=== PATIENT | female | born 1955 | race American Indian/Alaskan Native ===

== ENCOUNTER 2016-09-22 11:38 | Outpatient (CLI) | payer OTHER ==
--- NOTE | 2016-09-22 14:13 | Mammography Report ---
BILATERAL DIGITAL SCREENING MAMMOGRAM with CAD: 09/22/16 11:38:00 CLINICAL: Routine screening. COMPARISON:04/26/15 FINDINGS: The breasts are heterogeneously dense, which may obscure small masses. Bilateral benign calcifications. No mass, architectural distortion or suspicious calcifications. IMPRESSION: No mammographic evidence of malignancy. BI-RADS CATEGORY: 2 -- Benign RECOMMENDATION: Routine mammographic screening in one year. COMMENT: Patient follow-up letters are generated by our [email or web address] application.
== END 2016-09-22 11:39 | disposition home or self-care (01) ==
LOC: MAMMO 11:38
PROVIDERS: ATTEND Internal Medicine
DX: Z12.31 Encounter for screening mammogram for malignant neoplasm of breast (principal)
CPT/HCPCS: 77067; G0202

== ENCOUNTER 2021-05-11 04:00 | Emergency (ER) | payer MEDICARE ==
--- NOTE | 2021-05-11 04:43 | Emergency Department Report ---
Chief Complaint: High BP Stated Complaint: HBP Time Seen by Provider: 05/11/21 04:38 - HPI History of Present Illness: 66-year-old female patient with history of hypertension presents to emergency department with complaints of elevated blood pressure. She has checked her blood pressure 4 times in the last 24 hours. Systolic blood pressure has ranged from 160-170 mmHg. Her primary care provider checked her blood pressure in the office twice this week. Her blood pressure reportedly trended downward without intervention. Patient has been compliant with her medications. Patient is asymptomatic and denies all other complaints. - ROS Review of Systems: GENERAL: Negative for fever, chills, weight change, anorexia, fatigue. ENT: Negative for ear pain, difficulty hearing, sore throat, nasal congestion, epistaxis. CARDIOVASCULAR: Negative for chest pain, palpitations, lower extremity swelling. PULMONARY: Negative for cough, dyspnea, wheezing, orthopnea, cyanosis. GASTROINTESTINAL: Negative for abdominal pain, nausea, vomiting, diarrhea, constipation. MUSCULOSKELETAL: Negative for joint pain, joint swelling, myalgias, back pain, neck pain. NEUROLOGICAL: Negative for headache, seizure, syncope, paresthesias, weakness. INTEGUMENTARY: Negative for erythema, rash, diaphoresis, laceration, ecchymosis. HEMATOLOGICAL: Negative for hemoptysis, hematemesis, hematochezia, hematuria. PSYCHIATRIC: Negative for hallucinations, suicidal ideation, homicidal ideation, anxiety, depression. - Exam Vital Signs: Vital Signs 05/11/21 04:25 Temperature 98.1 F Pulse Rate 66 Respiratory 16 Rate Blood Pressure 163/82 O2 Sat by Pulse 100 Oximetry Physical Exam: General: Awake and alert. No acute distress. Head: Atraumatic, normocephalic. Eyes: EOMI. Pupils are equal and round. Normal sclera and conjunctiva. ENT: Oral mucosa is moist. Normal pharyngeal exam. Neck: Supple. No lymphadenopathy. Pulmonary: No respiratory distress. Clear to auscultation bilaterally. Cardiac: Regular rate and rhythm. Pulses are palpable and equal bilaterally. No lower extremity cyanosis or edema. Skin: Warm and dry. No rashes. Abdomen: Soft, non-tender, non-protuberant. No guarding, rigidity, or rebound. Bowel sounds are normal. No organomegaly or masses noted. Back: Normal alignment. No CVA tenderness. Extremities: Symmetrical. Full range of motion intact. Neurological: Alert and oriented, appropriately interactive, no focal deficits. Psych: Cooperative. Appropriate mood and affect. Speech is evenly metered. Thoughts are logically construed. MSE screening note: Focused history and physical exam performed. Due to findings the following was ordered: ED Medical Decision Making - Medical Decision Making Patient presents to the emergency department with asymptomatic hypertension. Patient has a well-documented history of hypertension. Specifically, the patient denies chest pain, shortness of breath, palpitations, syncope, headache, vision changes. Neurological exam is nonfocal and remainder of vital signs are stable. No clinical indication for emergent diagnostic work-up and/or emergent administration of antihypertensive therapy at this time per ACEP asymptomatic hypertension guidelines. Patient was encouraged to follow-up with primary care provider for blood pressure recheck and continue medications as previously prescribed. Patient expressed understanding and is agreeable to plan of care. Lifestyle modifications recommended. Strict return precautions provided. BILLING/CODING: This patient encounter does not represent a certified medical emergency. ED Disposition for MSE Clinical Impression: Encounter for medical screening examination, Asymptomatic hypertension Disposition: HOME / SELF CARE / HOMELESS Is pt being admited?: No Does the pt Need Aspirin: No Condition: Stable Instructions: Medical Screening Exam, Hypertension, Adult, Hypertension (ED) Additional Instructions: Continue all medications as previously prescribed. Please refrain from checking your blood pressure multiple times per day. Stress and anxiety from doing so are likely contributing to your elevated blood pressure readings. Exercise daily. Reduce your dietary sodium intake. Follow-up with your primary care provider this week. Call Thursday to schedule an appointment. Return to the emergency department immediately for new or worsening symptoms. Specifically, return to the emergency department immediately for chest pain, difficulty breathing, headache, palpitations, loss of consciousness, numbness, weakness, paralysis, or any other concerns. Referrals: DAISY RAYMOND MD [Staff Physician] - 3-5 Days [facility] [Provider Group] - 3-5 Days Time of Disposition: 04:43
[2021-05-11 05:01] VITALS: BP 133/73
== END 2021-05-11 04:54 | disposition home or self-care (01) ==
LOC: ED 04:00
DX: I10 Essential (primary) hypertension (principal); Z00.00 Encounter for general adult medical examination without abnormal findings
CPT/HCPCS: 99282